=== PATIENT | female | born 1985 | race Caucasian/White ===

== ENCOUNTER 2021-05-30 11:26 | Emergency (ER) | payer SELFPAY ==
[2021-05-30 12:32] LABS: Absolute Lymphocytes (CBC) 1.3 K/uL (0.7-4.9); Basophils % 0.7 % (0-1.3); Hematocrit 38.4 % (36.0-45.0); Lymphocytes % 11.2 % (15.3-44.8); MPV 8.6 fL (7.6-11.3); RBC Red Blood Cell Count 4.33 M/uL (3.86-4.86)
[2021-05-30] MEDS ORDERED: MORPHINE 2 MG/ML SYR ONE (12:38)
[2021-05-30] MEDS ORDERED: LIDOCAINE 1% MPF 30 ML VIAL ONE (12:38)
[2021-05-30] MEDS ORDERED: CLINDAMYCIN 600MG/D5W 600 MG/50 ML BAG IV ONE (12:38)
[2021-05-30] MEDS ORDERED: NA CHLORIDE 0.9% 1,000 ML ONE (12:38)
[2021-05-30] MEDS ORDERED: BUPIVACAINE 0.5% PF 10 ML VIAL ONE (12:38)
[2021-05-30 12:42] LABS: BUN Blood Urea Nitrogen 6 mg/dL (7-18); Bicarbonate 31 mmol/L (21-32); Glucose Level 99 mg/dL (74-106); Potassium 3.4 mmol/L (3.5-5.1); Sodium Level 138 mmol/L (136-145)
[2021-05-30] MEDS ORDERED: ACETAMINOPHEN 500 MG TAB ONE (13:31)
[2021-05-30] MEDS ORDERED: LORAZEPAM 0.5 MG TABLET ONE (14:02)
--- NOTE | 2021-05-30 14:36 | EDPHYS ---
Physician Documentation [facility] Name: Chelsea Herrera Age: 36 yrs Sex: Female : 1985 Arrival Date: 05/30/2021 Time: 11:27 Bed 17 Private MD: ED Physician Desmond Tabares HPI: 05/30 12:10 This 36 yrs old Female presents to ER via Ambulatory with complaints of cp Facial Swelling - left, Abscess. 12:10 The patient presents with pain, swelling. cp 12:10 The problem is located in the left lower jaw. Onset: The symptoms/episode cp began/occurred yesterday. Duration: The symptoms are continuous, and are steadily getting worse. Associated signs and symptoms: Pertinent negatives: chills, dysphagia, fever, inability to eat. Severity of symptoms: in the emergency department the symptoms are unchanged, despite home interventions. 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 - Social history:: Smoking status: Patient reports the use of cigarette tobacco products, smokes one-half pack cigarettes per day. ROS: 12:15 Constitutional: Negative for body aches, chills, fever, poor PO intake. cp 12:15 Eyes: Negative for injury, pain, redness, and discharge. cp 12:15 ENT: Positive for dental pain. 12:15 Cardiovascular: Negative for chest pain, palpitations. 12:15 Respiratory: Negative for cough, shortness of breath, wheezing. 12:15 Abdomen/GI: Negative for abdominal pain, nausea and vomiting, nausea, vomiting, and diarrhea. 12:15 Back: Negative for decreased range of motion, pain at rest, pain with movement. 12:15 Skin: Negative for rash. 12:15 Neuro: Negative for altered mental status, headache. 12:15 All other systems are negative. Exam: 12:20 Constitutional: The patient appears in no acute distress, alert, awake, non-toxic, well cp developed, well nourished, uncomfortable. 12:20 Head/face: Noted is swelling, that is mild, of the left mandible, tenderness, that is cp moderate, of the left mandible. 12:20 Eyes: Periorbital structures: appear normal, Conjunctiva: normal, no exudate, no injection, Sclera: no appreciated abnormality, Lids and lashes: appear normal, bilaterally. 12:20 ENT: External ear(s): are unremarkable, Ear canal(s): are normal, clear, TM's: dullness, bilaterally, Nose: is normal, Mouth: Lips: moist, Oral mucosa: pink and intact, moist, Posterior pharynx: Airway: no evidence of obstruction, patent, Dental exam: abscess, is not appreciated, dental caries, that is severe, diffusely, gum swelling, that is mild, specifically in the left lower outer jaw, pain, that is moderate, specifically in the lower left first molar (#19) and lower left second bicuspid (#20), Voice: is normal. 12:20 Neck: ROM/movement: is normal, is supple, no meningismus, no nuchal rigidity. 12:20 Chest/axilla: Inspection: normal, Palpation: is normal, no crepitus, no tenderness. 12:20 Cardiovascular: Rate: normal, Rhythm: regular. 12:20 Respiratory: the patient does not display signs of respiratory distress, Respirations: normal, no use of accessory muscles, no retractions, labored breathing, is not present, Breath sounds: are clear throughout, no decreased breath sounds, no stridor, no wheezing. 12:20 Abdomen/GI: Exam negative for discomfort, distension, guarding, Inspection: abdomen appears normal. 12:20 Skin: no rash present. Vital Signs: 11:51 BP 149 / 110; Pulse 100; Resp 16; Temp 98.5; Pulse Ox 100% on R/A; Weight 63.5 kg; iw Height 5 ft. 7 in. (170.18 cm); 12:30 BP 154 / 103; Pulse 81; Resp 16; Pulse Ox 100% on R/A; zb 14:55 BP 154 / 102; Pulse 80; Resp 16; Pulse Ox 100% on R/A; zb 11:51 Body Mass Index 21.93 (63.50 kg, 170.18 cm) iw MDM: 11:58 Patient medically screened. cp 12:30 Differential diagnosis: dental caries, dental abscess, pericoronitis, gingivostomatitis.cp 14:35 Data reviewed: vital signs, nurses notes, lab test result(s), and as a result, I will cp discharge patient. 14:35 Counseling: I had a detailed discussion with the patient and/or guardian regarding: the cp historical points, exam findings, and any diagnostic results supporting the discharge/admit diagnosis, lab results, the need for outpatient follow up, for definitive care, a dentist, to return to the emergency department if symptoms worsen or persist or if there are any questions or concerns that arise at home. Response to treatment: the patient's symptoms have mildly improved after treatment, and as a result, I will discharge patient. ED course: VSS. Pain improved with meds. Patient appears non-toxic. Will discharge to home for continued monitoring. 05/30 12:01 Order name: CBC with Diff; Complete Time: 13:03 cp 05/30 13:04 Interpretation: Normal except: WBC 11.40; PLT 408; CHANDNI% 79.3; LYM% 11.2; NEUT A 9.1. cp 05/30 12:01 Order name: BMP; Complete Time: 13:03 cp 05/30 15:03 Order name: Urine Dipstick-Ancillary EDMS 05/30 12:01 Order name: Urine Dipstick-Ancillary (obtain specimen); Complete Time: 14:53 cp 05/30 12:01 Order name: Urine Test (obtain specimen); Complete Time: 14:53 cp 05/30 12:01 Order name: IV; Complete Time: 12:20 cp Administered Medications: 12:26 Drug: Lidocaine (1 %) 10 ml {Note: placed at bedside for ecp .} Volume: 20 ml; Route: zb Infiltration; 13:47 Follow up: Response: No adverse reaction zb 12:26 Drug: Marcaine (bupivacaine) (0.5 %) 10 ml {Note: placed at bedside for ecp .} Volume: zb 10 ml; Route: Infiltration; 13:47 Follow up: Response: No adverse reaction zb 12:26 Drug: NS 0.9% 1000 ml Route: IV; Rate: 1 bolus; Site: right antecubital; zb 13:47 Follow up: Response: No adverse reaction; IV Status: Completed infusion; IV Intake: zb 1000ml 12:26 Drug: Clindamycin 600 mg Route: IVPB; Infused Over: 30 mins; Site: right antecubital; zb 13:47 Follow up: Response: No adverse reaction; IV Status: Completed infusion; IV Intake: 50mlzb 12:27 Drug: morphine 2 mg {Note: RASS +0.} Route: IVP; Site: right antecubital; zb 14:49 Follow up: Response: No adverse reaction; Pain is decreased zb 13:46 Drug: Ativan (LORazepam) 0.5 mg Route: PO; zb 14:49 Follow up: Response: Anxiety decreased zb 13:47 Drug: Tylenol 1000 mg Route: PO; zb 14:49 Follow up: Response: No adverse reaction; Marked relief of symptoms; Pain is decreased zb Disposition: 14:45 Chart complete. cp Disposition Summary: 05/30/21 14:36 Discharge Ordered Location: Home cp Problem: new cp Symptoms: have improved cp Condition: Stable cp Diagnosis - Other specified disorders of teeth and supporting structures cp Followup: cp - With: Enrico Emery DDS - When: 2 - 3 days - Reason: Recheck today's complaints Discharge Instructions: - Discharge Summary Sheet cp - Dental Pain cp Forms: - Medication Reconciliation Form cp - Thank You Letter cp - Antibiotic Education cp - Prescription Opioid Use cp Prescriptions: - Clindamycin HCl 300 mg Oral Capsule - take 1 capsule by ORAL route every 6 hours for 10 days; 40 capsule; Refills: 0, cp Product Selection Permitted - Ibuprofen 800 mg Oral Tablet - take 1 tablet by ORAL route every 8 hours As needed take with food; 30 tablet; cp Refills: 0, Product Selection Permitted - Tramadol 50 mg Oral Tablet - take 1 tablet by ORAL route every 8 hours as needed; 12 tablet; Refills: 0, cp Product Selection Permitted Addendum: 06/01/2021 17:06 Co-signature as Attending Physician, Desmond ram a2 Signatures: Dispatcher [employer] Shirley Ying RN RN Edwin Kiser PA PA cp Desmond Tabares MD MD ma2 Loreta Smith RN RN zb
--- NOTE | 2021-05-30 14:36 | ER ---
Nurse's Notes [facility] Name: Chelsea Herrera Age: 36 yrs Sex: Female : 1985 Arrival Date: 05/30/2021 Time: 11:27 Bed 17 Private MD: Diagnosis: Other specified disorders of teeth and supporting structures Presentation: 05/30 11:51 Chief complaint: Patient states: woke up this morning and left side of face is iw swelling, has bad teeth. Coronavirus screen: At this time, the client does not indicate any symptoms associated with coronavirus-19. Ebola Screen: Patient negative for fever greater than or equal to 101.5 degrees Fahrenheit, and additional compatible Ebola Virus Disease symptoms Patient denies exposure to infectious person. Patient denies travel to an Ebola-affected area in the 21 days before illness onset. No symptoms or risks identified at this time. Initial Sepsis Screen: Does the patient meet any 2 criteria? No. Patient's initial sepsis screen is negative. Does the patient have a suspected source of infection? No. Patient's initial sepsis screen is negative. Risk Assessment: Do you want to hurt yourself or someone else? Patient reports no desire to harm self or others. Onset of symptoms was May 30, 2021. 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 - Social history:: Smoking status: Patient reports the use of cigarette tobacco products, smokes one-half pack cigarettes per day. Screenin:29 Abuse screen: Denies threats or abuse. Denies injuries from another. Nutritional zb screening: No deficits noted. Tuberculosis screening: No symptoms or risk factors identified. Fall Risk None identified. Assessment: 12:27 General: Appears uncomfortable, Behavior is calm, cooperative, appropriate for age. zb General: Denies fever. Pain: Complains of pain in left jaw Pain currently is 5 out of 10 on a pain scale. Quality of pain is described as aching, Pain began 2-3 days ago. Is continuous. Neuro: Level of Consciousness is awake, alert, obeys commands, Oriented to person, place, time, situation. Respiratory: Airway is patent Respiratory effort is even, unlabored, Respiratory pattern is regular, symmetrical. Derm: Abscess located on left jaw is quarter sized, is raised. Musculoskeletal: Range of motion: intact in all extremities. 13:00 Reassessment: ECP administered numbing. zb 13:30 Reassessment: Patient appears in no apparent distress at this time. Patient and/or zb family updated on plan of care and expected duration. Pain level reassessed. Patient is alert, oriented x 3, equal unlabored respirations, skin warm/dry/pink. c/o headache notified ecp medication ordered. 14:54 Reassessment: Patient appears in no apparent distress at this time. Patient and/or zb family updated on plan of care and expected duration. Pain level reassessed. Patient is alert, oriented x 3, equal unlabored respirations, skin warm/dry/pink. d/c instructions given. patient ambulated out. no issue at this time pain has decreased. Vital Signs: 11:51 BP 149 / 110; Pulse 100; Resp 16; Temp 98.5; Pulse Ox 100% on R/A; Weight 63.5 kg; iw Height 5 ft. 7 in. (170.18 cm); 12:30 BP 154 / 103; Pulse 81; Resp 16; Pulse Ox 100% on R/A; zb 14:55 BP 154 / 102; Pulse 80; Resp 16; Pulse Ox 100% on R/A; zb 11:51 Body Mass Index 21.93 (63.50 kg, 170.18 cm) iw ED Course: 11:27 Patient arrived in ED. am2 11:52 Triage completed. iw 11:53 Edwin Díaz PA is PHCP. cp 11:53 Desmond Tabares MD is Attending Physician. cp 11:53 Arm band placed on. iw 12:07 Loreta Smith RN is Primary Nurse. zb 12:19 Inserted saline lock: 20 gauge in right antecubital area, using aseptic technique. dh4 Blood collected. 12:29 Patient has correct armband on for positive identification. Pulse ox on. NIBP on. Door zb closed. Noise minimized. 14:35 Enrico Emery DDS is Referral Physician. cp 14:54 No provider procedures requiring assistance completed. IV discontinued, intact, zb bleeding controlled, No redness/swelling at site. Pressure dressing applied. Administered Medications: 12:26 Drug: Lidocaine (1 %) 10 ml {Note: placed at bedside for ecp .} Volume: 20 ml; Route: zb Infiltration; 13:47 Follow up: Response: No adverse reaction zb 12:26 Drug: Marcaine (bupivacaine) (0.5 %) 10 ml {Note: placed at bedside for ecp .} Volume: zb 10 ml; Route: Infiltration; 13:47 Follow up: Response: No adverse reaction zb 12:26 Drug: NS 0.9% 1000 ml Route: IV; Rate: 1 bolus; Site: right antecubital; zb 13:47 Follow up: Response: No adverse reaction; IV Status: Completed infusion; IV Intake: zb 1000ml 12:26 Drug: Clindamycin 600 mg Route: IVPB; Infused Over: 30 mins; Site: right antecubital; zb 13:47 Follow up: Response: No adverse reaction; IV Status: Completed infusion; IV Intake: 50mlzb 12:27 Drug: morphine 2 mg {Note: RASS +0.} Route: IVP; Site: right antecubital; zb 14:49 Follow up: Response: No adverse reaction; Pain is decreased zb 13:46 Drug: Ativan (LORazepam) 0.5 mg Route: PO; zb 14:49 Follow up: Response: Anxiety decreased zb 13:47 Drug: Tylenol 1000 mg Route: PO; zb 14:49 Follow up: Response: No adverse reaction; Marked relief of symptoms; Pain is decreased zb Intake: 13:47 IV: 1000ml; Total: 1000ml. zb 13:47 IV: 50ml; Total: 1050ml. zb Outcome: 14:36 Discharge ordered by MD. cp 14:54 Discharged to home ambulatory. zb 14:54 Condition: stable 14:54 Discharge instructions given to patient, Instructed on discharge instructions, follow up and referral plans. medication usage, Demonstrated understanding of instructions, follow-up care, medications, Prescriptions given X 3. 15:05 Patient left the ED. zb Signatures: Shirley Guidry RN RN iw Edwin Díaz PA PA cp Moreno, Amanda am2 Brandon Monzon dh4 Loreta Smith, RN RN zb
[2021-05-30 15:04] LABS: Urine Blood Trace-intact (Negative); Urine Glucose Negative (Negative); Urine Protein Negative (Negative); Urine pH 6.5 (5.0-7.0)
[2021-05-30 15:16] VITALS: TEMP 98.5; O2SAT 100
[2021-05-30 15:19] VITALS: BP 154/102
== END 2021-05-30 15:05 | disposition home or self-care (01) ==
LOC: ER 11:26
DX: K08.89 Other specified disorders of teeth and supporting structures (principal); F17.210 Nicotine dependence, cigarettes, uncomplicated
CPT/HCPCS: 36415; 80048; 81003; 85025; 96365; 96375; 99284; J2270; J7030

== ENCOUNTER 2023-06-21 15:35 | Emergency (ER) | payer SELFPAY ==
--- NOTE | 2023-06-21 16:14 | EDPHYS ---
Physician Documentation [facility] Name: Chelsea Herrera Age: 38 yrs Sex: Female : 1985 Arrival Date: 06/21/2023 Time: 15:35 Bed 12 Private MD: ED Physician Celestine Noble HPI: 06/21 17:00 This 38 yrs old Female presents to ER via Ambulatory with complaints of lump on jaw ms3 line. 17:00 38-year-old female with no past medical history presents for inflammation of cyst on ms3 her left jawline that has become enlarged. Patient states this occurred years ago and she had a needle aspiration performed. Patient denies pain. Patient denies fevers, chills.. 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 - Social history:: Smoking status: Reported history of juuling and/or vaping. ROS: 17:00 Constitutional: Negative for fever, and chills. Neck: Negative for injury, pain, and ms3 swelling, Cardiovascular: Negative for chest pain, and palpitations. Respiratory: Negative for shortness of breath, cough, wheezing, and pleuritic chest pain, Abdomen/GI: Negative for abdominal pain, nausea, vomiting, diarrhea, and constipation, MS/Extremity: Negative for injury and deformity. 17:00 Skin: Positive for Lump on left jaw line. 17:00 All other systems are negative. Exam: 17:00 Constitutional: This is a well developed, well nourished patient who is awake, alert, ms3 and in no acute distress. Neck: Trachea midline, no cervical lymphadenopathy. Supple, full range of motion without nuchal rigidity, or vertebral point tenderness. No Meningismus. Chest/axilla: Normal chest wall appearance and motion. Nontender with no deformity. Cardiovascular: Regular rate and rhythm with a normal S1 and S2. No gallops, murmurs, or rubs. Normal PMI, no JVD. No pulse deficits. Respiratory: Lungs have equal breath sounds bilaterally, clear to auscultation and percussion. No rales, rhonchi or wheezes noted. No increased work of breathing, no retractions or nasal flaring. Abdomen/GI: Soft, non-tender, with normal bowel sounds. No distension or tympany. No guarding or rebound. No evidence of tenderness throughout. MS/ Extremity: Pulses equal, no cyanosis. Neurovascular intact. Full, normal range of motion. 17:00 Skin: 1cm x 2 cm indurated area on L mandible with surrounding erythema. Vital Signs: 15:42 BP 162 / 111; Pulse 82; Resp 16; Temp 97.5; Pulse Ox 100% ; Weight 72.57 kg; Height 5 me1 ft. 7 in. ; 16:14 BP 142 / 84; Pulse 78; Resp 18; Pulse Ox 100% on R/A; mb9 15:42 Body Mass Index 25.06 (72.57 kg, 170.18 cm) me1 MDM: 16:13 Patient medically screened. ms3 17:00 Differential Diagnosis Abscess vs Cyst vs Cellulitis. Data reviewed: vital signs, ms3 nurses notes, and as a result, I will discharge patient. I considered the following discharge prescriptions or medication management in the emergency department Rx for Doxycyline given. Counseling: I had a detailed discussion with the patient and/or guardian regarding: the historical points, exam findings, and any diagnostic results supporting the discharge/admit diagnosis, the need for outpatient follow up, to return to the emergency department if symptoms worsen or persist or if there are any questions or concerns that arise at home. ED course: Discussed physical exam findings and necessity to follow-up with Dr. Marie with patient. Patient understands and agrees with plan. All questions were answered. Return precautions discussed include worsening symptoms, or any other concerns. Administered Medications: No medications were administered Disposition Summary: 06/21/23 16:14 Discharge Ordered Location: Home ms3 Condition: Stable ms3 Diagnosis - Cellulitis of face ms3 - Epidermal cyst ms3 Followup: ms3 - With: Kristie Conrad MD - When: 2 - 3 days - Reason: Recheck today's complaints Discharge Instructions: - Discharge Summary Sheet ms3 - Cellulitis, Adult ms3 Forms: - Medication Reconciliation Form ms3 - Thank You Letter ms3 - Antibiotic Education ms3 - Prescription Opioid Use ms3 - Patient Portal Instructions ms3 - Leadership Thank You Letter ms3 Prescriptions: - Doxycycline Hyclate 100 mg Oral Tablet - take 1 tablet by ORAL route every 12 hours; 20 tablet; Refills: 0, Product ms3 Selection Permitted Signatures: Celestine Noble DO DO ms3 Magnolia Ridley, RN RN me1
--- NOTE | 2023-06-21 16:14 | ER ---
Nurse's Notes [facility] Name: Chelsea Herrera Age: 38 yrs Sex: Female : 1985 Arrival Date: 06/21/2023 Time: 15:35 Bed 12 Private MD: Diagnosis: Cellulitis of face;Epidermal cyst Presentation: 06/21 15:42 Chief complaint: Patient states: bump on left jawline that has been present for a long me1 time but increased a lot in size overnight. Denies fever/chills. Coronavirus screen: Vaccine status: Patient reports being unvaccinated. At this time, the client does not indicate any symptoms associated with coronavirus-19. Ebola Screen: No symptoms or risks identified at this time. Initial Sepsis Screen: Does the patient meet any 2 criteria? No. Patient's initial sepsis screen is negative. Does the patient have a suspected source of infection? No. Patient's initial sepsis screen is negative. Risk Assessment: Do you want to hurt yourself or someone else? Patient reports no desire to harm self or others. Onset of symptoms is unknown. 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 - Social history:: Smoking status: Reported history of juuling and/or vaping. Screenin:05 [facility] ED Fall Risk Assessment (Adult) History of falling in the last 3 months, mb9 including since admission No falls in past 3 months (0 pts) Confusion or Disorientation No (0 pts) Intoxicated or Sedated No (0 pts) Impaired Gait No (0 pts) Mobility Assist Device Used No (0 pt) Altered Elimination No (0 pt) Score/Fall Risk Level 0 - 2 = Low Risk Oriented to surroundings, Maintained a safe environment, Educated pt \T\ family on fall prevention, incl call for assistance when getting out of bed. Abuse screen: Denies threats or abuse. Nutritional screening: No deficits noted. Tuberculosis screening: No symptoms or risk factors identified. Assessment: 16:04 General: Appears in no apparent distress. Behavior is calm, cooperative. Pain: mb9 Complains of pain in left side of jaw Pain does not radiate. Quality of pain is described as throbbing. Neuro: Perez Agitation-Sedation Scale (RASS): 0 - Alert and Calm Level of Consciousness is awake, alert, obeys commands, Oriented to person, place, time, situation, Appropriate for age. Cardiovascular: Patient's skin is warm and dry. Respiratory: Airway is patent Respiratory effort is even, unlabored, Respiratory pattern is regular, symmetrical. GI: No signs and/or symptoms were reported involving the gastrointestinal system. : No signs and/or symptoms were reported regarding the genitourinary system. EENT: No signs and/or symptoms were reported regarding the EENT system. Derm: Abscess located on left jaw is dime sized, is raised. Musculoskeletal: Range of motion: intact in all extremities. Vital Signs: 15:42 BP 162 / 111; Pulse 82; Resp 16; Temp 97.5; Pulse Ox 100% ; Weight 72.57 kg; Height 5 me1 ft. 7 in. ; 16:14 BP 142 / 84; Pulse 78; Resp 18; Pulse Ox 100% on R/A; mb9 15:42 Body Mass Index 25.06 (72.57 kg, 170.18 cm) me1 ED Course: 15:38 Patient arrived in ED. im 15:44 Celestine Noble DO is Attending Physician. ms3 15:47 Triage completed. me1 15:47 Arm band placed on Patient placed in waiting room. me1 15:54 Micaela Ramos, ELANA is Primary Nurse. mb9 16:05 Placed in gown. Bed in low position. Call light in reach. Side rails up X 1. Client mb9 placed on continuous cardiac and pulse oximetry monitoring. NIBP monitoring applied. 16:13 Kristie Conrad MD is Referral Physician. ms3 16:14 No provider procedures requiring assistance completed. Patient did not have IV access mb9 during this emergency room visit. Administered Medications: No medications were administered Medication: 16:05 VIS not applicable for this client. mb9 Outcome: 16:14 Discharge ordered by . ms3 16:14 Discharged to home ambulatory. mb9 16:14 Condition: stable 16:14 Discharge instructions given to patient, Instructed on discharge instructions, follow up and referral plans. Demonstrated understanding of instructions, follow-up care, medications, Prescriptions given X 1. 16:17 Patient left the ED. mb9 Signatures: Celestine Noble DO DO ms3 Micaela Ramos RN RN mb9 Amy Madsen Michelle, RN RN me1
[2023-06-21 17:29] VITALS: BP 142/84; TEMP 97.5; O2SAT 100
== END 2023-06-21 16:17 | disposition home or self-care (01) ==
LOC: ER 15:35
DX: L03.211 Cellulitis of face (principal); L72.0 Epidermal cyst
CPT/HCPCS: 99283

== ENCOUNTER 2023-07-10 09:15 | Emergency (ER) | payer SELFPAY ==
[2023-07-10] MEDS ORDERED: LIDOCAINE 1% MPF 5 ML VIAL ONE (10:09)
[2023-07-10] MEDS ORDERED: DOXYCYCLINE 100 MG CAP PO ONE (10:09)
--- NOTE | 2023-07-10 10:10 | EDPHYS ---
Physician Documentation [facility] Name: Chelsea Herrera Age: 38 yrs Sex: Female : 1985 Arrival Date: 07/10/2023 Time: 09:15 Bed 12 Private MD: ED Physician Jonas Snowden HPI: 07/10 11:23 This 38 yrs old Female presents to ER via Ambulatory with complaints of Cyst. kb 11:23 the patient presents with a swollen area of the left jaw. Description: erythematous, kb swollen. Onset: The symptoms/episode began/occurred 3 day(s) ago. Possible cause(s): known cyst. Associated signs and symptoms: Pertinent positives: erythema, swelling, Pertinent negatives: discharge, drainage, foreign body sensation, fever, headache, nausea, shortness of breath, vomiting. Modifying factors: the symptoms are alleviated by nothing, the symptoms are aggravated by nothing. Severity of symptoms: At their worst the symptoms were moderate, in the emergency department the symptoms are unchanged. The patient has not experienced similar symptoms in the past. The patient has not recently seen a physician. Patient reports she had a cyst to left jaw for years, started getting bigger 1 month ago. States she was seen here and given antibiotics that relieve the symptoms at the time but it started getting bigger and red 3 days ago.. 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 - Social history:: Smoking status: Patient denies any tobacco usage or history of. ROS: 11:23 Constitutional: Negative for fever, chills, and weight loss. kb 11:23 Skin: Positive for abscess, of the left jaw. 11:23 All other systems are negative. Exam: 11:23 Constitutional: This is a well developed, well nourished patient who is awake, alert, kb and in no acute distress. Head/Face: Normocephalic, atraumatic. ENT: Moist Mucous membranes Cardiovascular: Regular rate and rhythm with a normal S1 and S2. No gallops, murmurs, or rubs. No pulse deficits. Respiratory: Respirations even and unlabored. No increased work of breathing. Talking in full sentences Abdomen/GI: Soft, non-tender. No distention MS/ Extremity: Pulses equal, no cyanosis. Neurovascular intact. Full, normal range of motion. Neuro: Awake and alert, GCS 15, oriented to person, place, time, and situation. Moves all extremities. Normal gait. 11:23 Skin: abscess, that is moderate sized, of the left jaw, with fluctuance, with surrounding cellulitis, that is very mild. Vital Signs: : Pulse 70; Resp 18; Temp 97.5; Pulse Ox 99% on R/A; Weight 79.38 kg; Height 5 ft. 5 in. ;mb9 09:19 Body Mass Index 29.12 (79.38 kg, 165.1 cm) mb9 Procedures: 10:09 I \T\ D: Incision and drainage was performed for an abscess of the left jaw Prepped with kb Betadine, Anesthetized with 1 ml's 1% Lidocaine. Incised with #11 blade. Drained moderate amount purulent fluid. Dressing: sterile 4x4 gauze, the patient tolerated the procedure well. MDM: 09:19 Patient medically screened. kb 10:09 Data reviewed: vital signs, nurses notes. kb 11:23 Differential diagnosis: abscess, allergic reaction, cellulitis, insect bite. kb Counseling: I had a detailed discussion with the patient and/or guardian regarding the historical points, exam findings, and any diagnostic results supporting the discharge/admit diagnosis, the need for outpatient follow up, a human resources services specialist, to return to the emergency department if symptoms worsen or persist or if there are any questions or concerns that arise at home. 07/10 09:23 Order name: I\T\D Setup; Complete Time: 10:00 kb Administered Medications: 10:00 Drug: Doxycycline PO 100 mg Route: PO; hb 10:05 Drug: Lidocaine Infiltration (1 %) 1 vials Volume: 5 ml; Route: Infiltration; mb9 Disposition: 11:36 Co-signature as Attending Physician, Jonas Snowden MD I agree with the assessment and kdr plan of care. Disposition Summary: 07/10/23 10:10 Discharge Ordered Location: Home kb Condition: Stable kb Diagnosis - Epidermal cyst - with abscess kb Followup: kb - With: Emergency Department - When: As needed - Reason: Worsening of condition Followup: kb - With: Private Physician - When: 2 - 3 days - Reason: Recheck today's complaints, Continuance of care, Re-evaluation by your physician Discharge Instructions: - Discharge Summary Sheet kb - Epidermoid Cyst, [id number] kb - Epidermoid Cyst Drainage kb Forms: - Medication Reconciliation Form kb - Thank You Letter kb - Antibiotic Education kb - Prescription Opioid Use kb - Patient Portal Instructions kb - Leadership Thank You Letter kb Prescriptions: - Cephalexin 500 mg Oral Capsule - take 1 capsule by ORAL route every 8 hours for 10 days; 30 capsule; Refills: 0, kb Product Selection Permitted - Doxycycline Hyclate 100 mg Oral Tablet - take 1 tablet by ORAL route every 12 hours; 20 tablet; Refills: 0, Product kb Selection Permitted Signatures: Rossana Escoto, Jonas Maxwell MD MD kdr Baxter, Heather, RN RN Micaela Ramos RN RN mb9
--- NOTE | 2023-07-10 10:10 | ER ---
Nurse's Notes [facility] Name: Chelsea Herrera Age: 38 yrs Sex: Female : 1985 Arrival Date: 07/10/2023 Time: 09:15 Bed 12 Private MD: Diagnosis: Epidermal cyst-with abscess Presentation: 07/10 09:19 Chief complaint: Patient states: "I was here a couple weeks ago for the same cyst on my mb9 jaw. They started me on antibiotics but it hasn't gone away.". Coronavirus screen: At this time, the client does not indicate any symptoms associated with coronavirus-19. Ebola Screen: No symptoms or risks identified at this time. Initial Sepsis Screen: Does the patient meet any 2 criteria? No. Patient's initial sepsis screen is negative. Does the patient have a suspected source of infection? No. Patient's initial sepsis screen is negative. Risk Assessment: Do you want to hurt yourself or someone else? Patient reports no desire to harm self or others. Onset of symptoms was 2022. 09:19 Method Of Arrival: Ambulatory mb9 09:19 Acuity: DHEERAJ 4 mb9 Triage Assessment: 09:21 General: Appears in no apparent distress. Behavior is calm, cooperative. Pain: mb9 Complains of pain in neck. Neuro: Perez Agitation-Sedation Scale (RASS): 0 - Alert and Calm Level of Consciousness is awake, alert, obeys commands, Oriented to person, place, time, situation, Appropriate for age. Cardiovascular: Patient's skin is warm and dry. Respiratory: Airway is patent Respiratory effort is even, unlabored, Respiratory pattern is regular, symmetrical. Derm: Abscess located on left jaw is quarter sized, is red, is raised. Musculoskeletal: Range of motion: intact in all extremities. 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 - Social history:: Smoking status: Patient denies any tobacco usage or history of. Screenin: [facility] ED Fall Risk Assessment (Adult) History of falling in the last 3 months, mb9 including since admission No falls in past 3 months (0 pts) Confusion or Disorientation No (0 pts) Intoxicated or Sedated No (0 pts) Impaired Gait No (0 pts) Mobility Assist Device Used No (0 pt) Altered Elimination No (0 pt) Score/Fall Risk Level 0 - 2 = Low Risk Oriented to surroundings, Maintained a safe environment, Educated pt \\T\\ family on fall prevention, incl call for assistance when getting out of bed. Abuse screen: Denies threats or abuse. Nutritional screening: No deficits noted. Tuberculosis screening: No symptoms or risk factors identified. Assessment: 09:22 Reassessment: see triage assessment. mb9 10:00 Reassessment: Patient appears in no apparent distress at this time. Patient and/or hb family updated on plan of care and expected duration. Pain level reassessed. Patient is alert, oriented x 3, equal unlabored respirations, skin warm/dry/pink. Vital Signs: 09:19 Pulse 70; Resp 18; Temp 97.5; Pulse Ox 99% on R/A; Weight 79.38 kg; Height 5 ft. 5 in. ;mb9 09:19 Body Mass Index 29.12 (79.38 kg, 165.1 cm) mb9 ED Course: 09:17 Patient arrived in ED. ts1 09:19 Rossana Escoto [facility]C [facility]. kb 09:19 Jonas Snowden MD is Attending Physician. kb 09:21 Triage completed. mb9 09:21 Arm band placed on. mb9 09:22 No provider procedures requiring assistance completed. mb9 09:23 Micaela Ramos, ELANA is Primary Nurse. mb9 10:00 Patient has correct armband on for positive identification. Provided Education on: . hb 10:01 Patient did not have IV access during this emergency room visit. mb9 Administered Medications: 10:00 Drug: Doxycycline PO 100 mg Route: PO; hb 10:05 Drug: Lidocaine Infiltration (1 %) 1 vials Volume: 5 ml; Route: Infiltration; mb9 Medication: 10:00 VIS not applicable for this client. hb Outcome: 10:10 Discharge ordered by . kb 10:35 Discharged to home ambulatory. hb 10:35 Condition: stable 10:35 Discharge instructions given to patient, Instructed on discharge instructions, follow up and referral plans. medication usage, wound care, Demonstrated understanding of instructions, follow-up care, medications, wound care, Prescriptions given X 2. 10:36 Patient left the ED. hb Signatures: Rossana Escoto, ZOLTAN GARCIA-Suki Long, RN RN Micaela Ramos RN RN mb9 Andria Barcenas, DOC PAS ts1
[2023-07-10 10:46] VITALS: TEMP 97.5; O2SAT 99
== END 2023-07-10 10:36 | disposition home or self-care (01) ==
LOC: ER 09:15
PROC: 0H91XZZ Drainage of Face Skin, External Approach (ICD-10-PCS; principal; 2023-07-10)
DX: L02.01 Cutaneous abscess of face (principal)
CPT/HCPCS: 99283; J2001

== ENCOUNTER 2024-12-25 09:15 | Emergency (ER) | payer SELFPAY ==
--- OUTSIDE RECORDS SUMMARY | 2024-12-25 09:18 | XMS REPORT | Continuity of Care Document ---
Author Name Unknown Address [address] [place] [address] [address] th[address] Address [address] [facility] [address] [place] [address] Care Team Providers Care Product Development Assistant Name Role Phone HAMILTON LUNDBERG Attending Clinician UnavailVLADIMIR Yee Attending Clinician Unavail le LAB90 Attending Clinician Unavailable Payers Payer Name Policy Type Policy Number Effective Date Expirati on Date Source A[employer] MP [employer] 5 O [employer] 94 ON 9 [id number] 2023 00:00:00 Problems Condition Name Condition Details Condition Category Status Onset Date Resolution Date Last Treatment Date Treating Clinician Comments Source Encounter for screening for diabetes mellitus Encounter for screening for diabetes mellitus Disease Active 11-24 00:00: 00 Lolis monroy Acute hepatitis C virus infection Acute hepatitis C virus infection Disease Active 11-24 00:00: 00 Lolis monroy Preop examinatio n Preop examinatio n Disease Active 11-24 00:00: 00 Lolis monroy Hx of hepatitis C Hx of hepatitis C Disease Active 11-24 00:00: 00 Lolis monroy Social History Social Habit Start Date Stop Date Quantity Comments Source Sexual orientation Osmany Mcelroy - External History of tobacco use Cigarette Smoker Lolis mares - External Tobacco use and exposure 2024-01-18 00:00:00 2024-01-18 00:00:00 Smokeless tobacco non-user Lolis Seybold - External Alcohol intake 2024-01-18 00:00:00 2024-01-18 00:00:00 Current drinker of alcohol (finding) Lolis Pickarddorivishnu - External History of Social function 2023-11-23 00:00:00 2023-11-23 00:00:00 Lolis Pickardamparo - External Alcohol Comment 2023-11-23 00:00:00 2023-11-23 00:00:00 ocassionally Lolis Pickardamparo - External Sex Assigned At 1985 00:00:00 1985 00:[birth year]:00 Lolis Sedorivishnu - External Smoking Status Start Date Stop Date Source Ex-smoker 2024-01-18 00:00:00 2024-01-18 00:00:00 Osmany phansmith dorivishnu - External Vital Signs Vital Name Observation Time Observation Value Comments S ource Systolic blood pressure 2024-01-18 20:28:00 137 mm[Hg] Lolis Pickardybo ld - External Diastolic blood pressure 2024-01-18 20:28:00 85 mm[Hg] Lolis Morao ld - External Heart rate 2024-01-18 20:28:00 82 /min Yudith mtz Seybold - External Body height 2024-01-18 20:28:00 170.2 cm Citlalli fountain Seybold - External Body weight 2024-01-18 20:28:00 73.483 kg Citlalli fountain Seybold - External BMI 2024-01-18 20:28:00 25.37 kg/m2 Citlalli ey Seybold - External Systolic blood pressure 2023-11-24 14:52:00 128 mm[Hg] Lolis Pickardybo ld - External Diastolic blood pressure 2023-11-24 14:52:00 84 mm[Hg] Lolis Pickardybo ld - External Heart rate 2023-11-24 14:52:00 84 /min Jasese y Seybold - External Body temperature 2023-11-24 14:52:00 36.89 Rani Lolis Pickardybold - External Respiratory rate 2023-11-24 14:52:00 18 /min Lolis Pickardybold - External Body height 2023-11-24 14:52:00 170.2 cm Citlalli ey Seybold - External Body weight 2023-11-24 14:52:00 76.374 kg Citlalil fountain Seybold - External BMI 2023-11-24 14:52:00 26.37 kg/m2 Citlalli Mcelroy - External Oxygen saturation in Arterial blood by Pulse oximetry 2023-11-24 14:52:00 99 /min Lolis Pickardtram ld - External Encounters Start Date/Time End Date/Time Encounter Type Admission Type Attending [facility] Facility Care Department Encounter ID Source 2024-01-18 15:15:00 2024-01-18 15:15:00 Outpatient HAMILTON LUNDBERG LOLIS JOE [id number] Lolis Navi 2024-01-07 00:00:00 2024-01-07 00:00:00 Outpatient VLADIMIR LIANG [facility] JO[facility] [id number] [facility]23-12-05 00:00:00 2023-12-05 00:00:00 Outpatient TANISHA LIANGPATI [facility] [id number] [facility] 2023-11-29 00:00:00 2023-11-29 00:00:00 Outpatient VLADIMIR LIANG LOLIS JOE [id number] Loliskiya Mcelroy 2023-11-25 00:00:00 2023-11-25 00:00:00 Outpatient VLADIMIR LIANG [facility] [id number] [facility] 2023-11-24 09:55:00 2023-11-24 09:55:00 Outpatient LAB90 LOLIS JO[facility] [id number] [facility] 2023-11-24 09:00:00 2023-11-24 09:00:00 Outpatient VLADIMIR LIANG LOLIS JOE [id number] Lolis vishnu Notes Date/Time Note Provider Source 2024-01-18 16:22:04 Examination chaperoned by Suki Suarez. [facility] 2024-01-18 15:27:58 Chief Complaint Patient presents with Well Woman Exam Patient declined STD screening today. Lala Stark CMA II T [facility] 2023-11-24 08:53:42 Chief Complaint Patient presents with Physical Physical and fasting labs Judy hTornton LVN [facility]
[2024-12-25] MEDS ORDERED: DOXYCYCLINE 100 MG CAP PO ONE (09:22)
[2024-12-25] MEDS ORDERED: CEPHALEXIN 250 MG CAP ONE (09:22)
--- NOTE | 2024-12-25 09:26 | EDPHYS ---
Physician Documentation [facility] Name: Chelsea King Age: 39 yrs Sex: Female : 1985 Arrival Date: 12/25/2024 Time: 09:15 Bed IW1 Private MD: ED Physician Sameera Lee HPI: 12/25 09:21 This 39 yrs old Female presents to ER via Unassigned with complaints of Cyst. kb 09:21 Pt is a 39 year old female who presents for cyst to left jaw that has been there for kb years, but started to get red yesterday. states this happens every few years. Denies fever.. Historical: - Allergies: :32 No Known Allergies; ss - PSHx: :32 section; ss - Infectious Disease History:: Denies. ROS: 09:21 Constitutional: As per HPI kb Exam: 09:21 Constitutional: This is a well developed, well nourished patient who is awake, alert, kb and in no acute distress. Head/Face: Normocephalic, atraumatic. ENT: Moist Mucous membranes Cardiovascular: Regular rate Respiratory: Respirations even and unlabored. No increased work of breathing. Talking in full sentences MS/ Extremity: Pulses equal, no cyanosis. Neurovascular intact. Full, normal range of motion. Neuro: Awake and alert, GCS 15, oriented to person, place, time, and situation. 09:21 Skin: small epidermal cyst with mild erythema, no warmth. Vital Signs: 09:20 BP 170 / 113; Pulse 88; Resp 15; Temp 97(TE); Pulse Ox 100% on R/A; Weight 77.11 kg; ss Height 5 ft. 7 in. ; 09:20 Body Mass Index 26.63 (77.11 kg, 170.18 cm) ss MDM: 09:20 Medical Screening Exam initiated kb 09:21 Differential diagnosis: cyst, abscess, cellulitis. Data reviewed: vital signs, nurses kb notes. Counseling: I had a detailed discussion with the patient and/or guardian regarding the historical points, exam findings, and any diagnostic results supporting the discharge/admit diagnosis, the need for outpatient follow up, a managing member, a general surgeon, to return to the emergency department if symptoms worsen or persist or if there are any questions or concerns that arise at home. Administered Medications: :27 Drug: Doxycycline PO 100 mg PO once Route: PO; 09:28 Follow up: Response: No adverse reaction; Medication Administered at Departure ss 09:27 Drug: Cephalexin PO 500 mg PO once Route: PO; 09:28 Follow up: Response: No adverse reaction; Medication administered at discharge. Disposition: 19:48 Co-signature as Attending Physician, Sameera HEATON I reviewed the patient's care gb1 provided by the Advanced Practice Provider and agree with the diagnosis and treatment plan. Disposition Summary: 12/25/24 09:26 Discharge Ordered Notes: Location: Home kb Condition: Stable kb Diagnosis - Epidermal cyst kb Followup: kb - With: Emergency Department - When: As needed - Reason: Worsening of condition Followup: kb - With: Private Physician - When: 2 - 3 days - Reason: Recheck today's complaints, Continuance of care, Re-evaluation by your physician Discharge Instructions: - Discharge Summary Sheet kb - Epidermoid Cyst, [id number] kb - Epidermoid Cyst Removal, Care After kb Forms: - Medication Reconciliation Form kb - Antibiotic Education kb - Prescription Opioid Use kb - Patient Portal Instructions kb - Leadership Thank You Letter kb Prescriptions: - Cephalexin 500 mg Oral Capsule - take 1 capsule ORAL route every 8 hours for 10 days; 30 capsule; Refills: 0, kb Product Selection Permitted - Doxycycline Hyclate 100 mg Oral Tablet - take 1 tablet ORAL route every 12 hours; 20 tablet; Refills: 0, Product kb Selection Permitted Signatures: Rossana Escoto FNP-C FNP-Ckb Blanchard, Shelby, RN RN Sameera Lee MD MD gb1
--- NOTE | 2024-12-25 09:35 | ER ---
Nurse's Notes [facility] Name: Chelsea King Age: 39 yrs Sex: Female : 1985 Arrival Date: 12/25/2024 Time: 09:15 Bed IW1 Private MD: Diagnosis: Epidermal cyst Presentation: 12/25 09:20 Chief complaint: Patient states: Here to have facial cyst reevaluated. Coronavirus ss screen: Client denies travel out of the [place] in the last 14 days. Ebola Screen: Patient denies exposure to infectious person. Patient denies travel to an Ebola-affected area in the 21 days before illness onset. Initial Sepsis Screen: Does the patient meet any 2 criteria? No. Patient's initial sepsis screen is negative. Does the patient have a suspected source of infection? No. Patient's initial sepsis screen is negative. Risk Assessment: Do you want to hurt yourself or someone else? Patient reports no desire to harm self or others. Onset of symptoms is unknown. 09:20 Method Of Arrival: Ambulatory ss 09:20 Acuity: DHEERAJ 5 ss Historical: - Allergies: :32 No Known Allergies; ss - PSHx: 09:32 section; ss - Infectious Disease History:: Denies. Screenin:32 [facility] ED Fall Risk Assessment (Adult) History of falling in the last 3 months, ss including since admission No falls in past 3 months (0 pts) Confusion or Disorientation No (0 pts) Intoxicated or Sedated No (0 pts) Impaired Gait No (0 pts) Mobility Assist Device Used No (0 pt) Altered Elimination No (0 pt) Score/Fall Risk Level 0 - 2 = Low Risk Oriented to surroundings, Maintained a safe environment. Abuse screen: Denies threats or abuse. Denies injuries from another. Nutritional screening: No deficits noted. Tuberculosis screening: Never had TB. Assessment: 09:32 General: Appears in no apparent distress. comfortable, Behavior is calm, cooperative. ss Neuro: Level of Consciousness is awake, alert, obeys commands, Oriented to person, place, time, situation. Respiratory: Airway is patent Respiratory effort is even, unlabored, Respiratory pattern is regular, symmetrical. GI: Patient currently denies diarrhea, nausea, vomiting. Derm: Skin is intact, is healthy with good turgor, Skin is dry, Skin is pink, warm \T\ dry. normal. Vital Signs: 09:20 BP 170 / 113; Pulse 88; Resp 15; Temp 97(TE); Pulse Ox 100% on R/A; Weight 77.11 kg; ss Height 5 ft. 7 in. ; 09:20 Body Mass Index 26.63 (77.11 kg, 170.18 cm) ss ED Course: 09:17 Patient arrived in ED. mr 09:20 Rossana Escoto FNP-C is [facility]. kb 09:20 Sameera Lee MD is Attending Physician. kb 09:31 Tami Leal, ELANA is Primary Nurse. ss 09:32 Triage completed. ss 09:32 Arm band placed on right wrist. ss 09:32 Patient has correct armband on for positive identification. ss 09:32 No provider procedures requiring assistance completed. Patient did not have IV access ss during this emergency room visit. Administered Medications: 09:27 Drug: Doxycycline PO 100 mg PO once Route: PO; ss 09:28 Follow up: Response: No adverse reaction; Medication Administered at Departure ss 09:27 Drug: Cephalexin PO 500 mg PO once Route: PO; ss 09:28 Follow up: Response: No adverse reaction; Medication administered at discharge. ss Medication: 09:32 VIS not applicable for this client. ss Outcome: :26 Discharge ordered by . kb 09:32 Discharged to home ambulatory, ss 09:32 Condition: good 09:32 Discharge instructions given to patient, family, Instructed on discharge instructions, follow up and referral plans. medication usage, Demonstrated understanding of instructions, follow-up care, medications, Prescriptions given X 2, 09:35 Patient left the ED. ss Signatures: Rossana Escoto FNP-C FNP-Maura WhitmanaMicaela, [facility] Reg aTmi Leal, RN RN
[2024-12-25 09:39] VITALS: BP 170/113; TEMP 97; O2SAT 100
== END 2024-12-25 09:35 | disposition home or self-care (01) ==
LOC: ER 09:15
DX: L72.0 Epidermal cyst (principal)
CPT/HCPCS: 99283